=== PATIENT | male | born 1980 | race Hispanic/Latino ===

== ENCOUNTER 2019-04-15 21:40 | Emergency (ER) | payer SELFPAY ==
--- OUTSIDE RECORDS SUMMARY | 2019-04-15 21:43 | XMS REPORT ---
:1980 [facility] Address [address] [place] [address] Care Team Providers Name Role Phone Unavailable Unavailable Unavailable Payers Payer Name Policy Type Policy Number Effective Date Expiration Date Problems This patient has no known problems. Allergies, Adverse Reactions, Alerts Allergy Allergy Status Severity Reaction(s) Onset Inactive Treating Comments Name Type Date Date Clinician No Known DA Active U 2013-04 Allergies -15 00:00:0 0 Medications This patient has no known medications.
--- NOTE | 2019-04-15 22:41 | ER ---
Nurse's Notes [facility] Name: Biju Villalba Jr Age: 38 yrs Sex: Male : 1980 Arrival Date: 04/15/2019 Time: 21:46 Bed 20 Private MD: Diagnosis: Pain in ankle and joints of foot Presentation: 04/15 21:48 Presenting complaint: Patient states: Left ankle and foot pain for 2 months. Seen by aj [facility] ER 2 months ago and DX with tendonitis. Care prior to arrival: None. 21:48 Acuity: JEMMA 4 aj 21:48 Method Of Arrival: Ambulatory aj 23:16 Transition of care: patient was not received from another setting of care. Onset of ao symptoms is unknown. Risk Assessment: Do you want to hurt yourself or someone else? Patient reports no desire to harm self or others. Initial Sepsis Screen: Does the patient meet any 2 criteria? No. Patient's initial sepsis screen is negative. Does the patient have a suspected source of infection? No. Patient's initial sepsis screen is negative. Triage Assessment: 21:49 General: Appears in no apparent distress. comfortable, Behavior is calm, cooperative, aj appropriate for age. Pain: Complains of pain in left foot, left medial ankle and medial aspect of left foot. Neuro: Level of Consciousness is awake, alert, obeys commands, Oriented to person, place, time, situation, Appropriate for age. Respiratory: Airway is patent Respiratory effort is even, unlabored, Respiratory pattern is regular, symmetrical. Derm: Skin is intact, is healthy with good turgor, Skin is pink, warm \T\ dry. normal. Musculoskeletal: Reports pain in left medial ankle and medial aspect of left foot. Historical: - Allergies: 21:49 No Known Allergies; aj - Immunization history:: Adult Immunizations up to date. - Ebola Screening: : Patient negative for fever greater than or equal to 101.5 degrees Fahrenheit, and additional compatible Ebola Virus Disease symptoms Patient denies exposure to infectious person Patient denies travel to an Ebola-affected area in the 21 days before illness onset No symptoms or risks identified at this time. - Social history:: Smoking status: Patient/guardian denies using tobacco. Screenin:16 Abuse screen: Denies threats or abuse. Denies injuries from another. Nutritional ao screening: No deficits noted. Tuberculosis screening: No symptoms or risk factors identified. Fall Risk None identified. Assessment: 22:13 General: Appears in no apparent distress. comfortable, Behavior is calm, cooperative, ao appropriate for age. Pain: Complains of pain in left ankle. Neuro: Level of Consciousness is awake, alert, obeys commands, Oriented to person, place, time, situation, Appropriate for age Moves all extremities. Full function Speech is normal, Facial symmetry appears normal. Cardiovascular: Capillary refill < 3 seconds Patient's skin is warm and dry. Respiratory: Airway is patent Respiratory effort is even, unlabored, Respiratory pattern is regular, symmetrical. GI: Abdomen is non-distended. : No signs and/or symptoms were reported regarding the genitourinary system. EENT: No deficits noted. No signs and/or symptoms were reported regarding the EENT system. Derm: Skin is intact, Skin is dry, Skin is pink, warm \T\ dry. normal, Skin temperature is warm. Musculoskeletal: Circulation, motion, and sensation intact. Range of motion:. 23:17 Reassessment: Dc instructions given to patient. Patient agree to follow up with ortho ao and PCP. Vital Signs: 21:49 BP 127 / 70; Pulse 95; Resp 16; Temp 97.4; Pulse Ox 97% on R/A; Weight 99.79 kg; Height aj 5 ft. 9 in. (175.26 cm); 23:17 Pulse 90; Resp 16; ao 21:49 Body Mass Index 32.49 (99.79 kg, 175.26 cm) aj ED Course: 21:46 Patient arrived in ED. es 21:48 Triage completed. aj 21:49 Arm band placed on left wrist. Patient placed in waiting room, Patient notified of wait aj time. 22:04 Dahiana Mcclain FNP-C is PHCP. snw 22:04 Kash Donis MD is Attending Physician. snw 22:13 XRAY Foot LEFT 3 View In Process Unspecified. EDMS 22:13 Jose Munoz, DERREK is Primary Nurse. ao 23:16 No provider procedures requiring assistance completed. Patient did not have IV access ao during this emergency room visit. 23:17 Patient has correct armband on for positive identification. Pulse ox on. ao Administered Medications: 22:59 Drug: Rampart 5 mg-325 mg 1 tabs Route: PO; ao 23:15 Follow up: Response: No adverse reaction ao Outcome: 22:41 Discharge ordered by . zandra 23:16 Discharged to home ambulatory, with crutches. ao 23:16 Condition: good 23:16 Discharge instructions given to patient, Instructed on discharge instructions, follow up and referral plans. Demonstrated understanding of instructions, follow-up care, medications, Prescriptions given X 1. 23:18 Patient left the ED. ao Signatures: Dispatcher [employer] Anaya Herzog, RN RN Dahiana Hines, RECYCLING OPERATOR-C RECYCLING OPERATOR-Csnw Stefani Kaufman Alex RN RN ao
--- NOTE | 2019-04-15 22:41 | EDPHYS ---
Physician Documentation [facility] Name: Biju Villalba Jr Age: 38 yrs Sex: Male : 1980 Arrival Date: 04/15/2019 Time: 21:46 Bed 20 Private MD: ED Physician Kash Donis HPI: 04/15 22:48 This 38 yrs old Male presents to ER via Ambulatory with complaints of ANKLE snw PAIN. 22:48 Onset: The symptoms/episode began/occurred 3 month(s) ago, and became persistent. snw Associated signs and symptoms: Pertinent positives: pain and tingling to right ankle, foot, toes. Pt states he got a nerve block two months ago in [place], requests same. The patient has experienced similar episodes in the past. 2mo ago. Historical: - Allergies: 21:49 No Known Allergies; aj - Immunization history:: Adult Immunizations up to date. - Ebola Screening: : Patient negative for fever greater than or equal to 101.5 degrees Fahrenheit, and additional compatible Ebola Virus Disease symptoms Patient denies exposure to infectious person Patient denies travel to an Ebola-affected area in the 21 days before illness onset No symptoms or risks identified at this time. - Social history:: Smoking status: Patient/guardian denies using tobacco. ROS: 22:46 Constitutional: Negative for fever, chills, and weight loss, Eyes: Negative for injury, snw pain, redness, and discharge, ENT: Negative for injury, pain, and discharge, Neck: Negative for injury, pain, and swelling, Cardiovascular: Negative for chest pain, palpitations, and edema, Respiratory: Negative for shortness of breath, cough, wheezing, and pleuritic chest pain, Abdomen/GI: Negative for abdominal pain, nausea, vomiting, diarrhea, and constipation, Back: Negative for injury and pain, : Negative for injury, bleeding, discharge, and swelling, Skin: Negative for injury, rash, and discoloration, Neuro: Negative for headache, weakness, numbness, tingling, and seizure. 22:46 MS/extremity: Positive for decreased range of motion, pain, swelling, tenderness, of the medial aspect of left foot and left medial ankle, request nerve block. pt encouraged to f/u Orthopedics. Exam: 22:45 Constitutional: This is a well developed, well nourished patient who is awake, alert, snw and in no acute distress. Head/Face: Normocephalic, atraumatic. Eyes: Pupils equal round and reactive to light, extra-ocular motions intact. Lids and lashes normal. Conjunctiva and sclera are non-icteric and not injected. Cornea within normal limits. Periorbital areas with no swelling, redness, or edema. ENT: Nares patent. No nasal discharge, no septal abnormalities noted. Tympanic membranes are normal and external auditory canals are clear. Oropharynx with no redness, swelling, or masses, exudates, or evidence of obstruction, uvula midline. Mucous membranes moist. Neck: Trachea midline, no thyromegaly or masses palpated, and no cervical lymphadenopathy. Supple, full range of motion without nuchal rigidity, or vertebral point tenderness. No Meningismus. Chest/axilla: Normal chest wall appearance and motion. Nontender with no deformity. No lesions are appreciated. Cardiovascular: Regular rate and rhythm with a normal S1 and S2. No gallops, murmurs, or rubs. Normal PMI, no JVD. No pulse deficits. Respiratory: Lungs have equal breath sounds bilaterally, clear to auscultation and percussion. No rales, rhonchi or wheezes noted. No increased work of breathing, no retractions or nasal flaring. Abdomen/GI: Soft, non-tender, with normal bowel sounds. No distension or tympany. No guarding or rebound. No evidence of tenderness throughout. Back: No spinal tenderness. No costovertebral tenderness. Full range of motion. Skin: Warm, dry with normal turgor. Normal color with no rashes, no lesions, and no evidence of cellulitis. Neuro: Awake and alert, GCS 15, oriented to person, place, time, and situation. Cranial nerves II-XII grossly intact. Motor strength 5/5 in all extremities. Sensory grossly intact. Cerebellar exam normal. Normal gait. Psych: Awake, alert, with orientation to person, place and time. Behavior, mood, and affect are within normal limits. 22:45 Musculoskeletal/extremity: Extremities: grossly normal except: noted in the medial aspect of left foot radiating to medial ankle: decreased ROM, pain, swelling, tenderness, ROM: limited active range of motion due to pain, Circulation is intact in all extremities. Tingling of extremity. numbness. Vital Signs: 21:49 BP 127 / 70; Pulse 95; Resp 16; Temp 97.4; Pulse Ox 97% on R/A; Weight 99.79 kg; Height aj 5 ft. 9 in. (175.26 cm); 23:17 Pulse 90; Resp 16; ao 21:49 Body Mass Index 32.49 (99.79 kg, 175.26 cm) MDM: 22:29 Patient medically screened. snw 22:47 Data reviewed: vital signs, nurses notes. Data interpreted: Pulse oximetry: on room air snw is 97 %. Interpretation: normal. Counseling: I had a detailed discussion with the patient and/or guardian regarding: the historical points, exam findings, and any diagnostic results supporting the discharge/admit diagnosis, radiology results, the need for outpatient follow up, to return to the emergency department if symptoms worsen or persist or if there are any questions or concerns that arise at home. Special discussion: Based on the history and exam findings, there is no indication for further emergent testing or inpatient evaluation. I discussed with the patient/guardian the need to see the orthopedic surgeon for further evaluation of the symptoms. I discussed with the patient/guardian the need to see the primary care provider for further evaluation of the symptoms. 04/15 21:50 Order name: XRAY Foot LEFT 3 View 04/15 22:40 Order name: Walking boot: right; Complete Time: 23:15 snw 04/15 22:40 Order name: Crutches; Complete Time: 23:15 snw 04/15 22:41 Order name: Crutch Training; Complete Time: 23:15 snw Administered Medications: 22:59 Drug: Riva 5 mg-325 mg 1 tabs Route: PO; ao 23:15 Follow up: Response: No adverse reaction ao Disposition: 04/16 00:18 Co-signature as Attending Physician, Kash Donis MD. rn Disposition: 04/15/19 22:41 Discharged to Home. Impression: Pain in ankle and joints of foot. - Condition is Stable. - Discharge Instructions: Cast or Splint Care, Adult, Ankle Pain, Cryotherapy. - Prescriptions for Diclofenac Sodium 75 mg Oral Tablet Sustained Release - take 1 tablet by ORAL route 2 times per day; 30 tablet. - Medication Reconciliation Form, Thank You Letter, Antibiotic Education, Prescription Opioid Use form. - Follow up: Private Physician; When: 2 - 3 days; Reason: Recheck today's complaints, Continuance of care, Re-evaluation by your physician. Signatures: Dispatcher [employer] Anaya Herzog RN RN Dahiana Hines, SPEECH PATHOLOGY TEACHER-C SPEECH PATHOLOGY TEACHER-Csnw Kash Donis MD MD rn Ortiz, Alex, RN RN ao Corrections: (The following items were deleted from the chart) 04/15 23:18 22:41 04/15/2019 22:41 Discharged to Home. Impression: Pain in ankle and joints of ao foot. Condition is Stable. Forms are Medication Reconciliation Form, Thank You Letter, Antibiotic Education, Prescription Opioid Use. Follow up: Private Physician; When: 2 - 3 days; Reason: Recheck today's complaints, Continuance of care, Re-evaluation by your physician. snw
[2019-04-15] MEDS ORDERED: HYDROCODONE/APAP 5/325 MG TAB ONE (23:12)
--- NOTE | 2019-04-16 08:48 | RAD REPORT ---
EXAM DESCRIPTION: RAD - Foot Left 3 View - 04/15/2019 10:13 pm CLINICAL HISTORY: Persistent left foot and ankle pain x2 months COMPARISON: None. FINDINGS: No fracture, dislocation or periosteal reaction. No acute or destructive bony process. No air or foreign body in the soft tissues. IMPRESSION: Negative left foot examination.
== END 2019-04-15 23:18 | disposition home or self-care (01) ==
LOC: ER 21:40
DX: M25.572 Pain in left ankle and joints of left foot (principal)
CPT/HCPCS: 99284